=== PATIENT | male | born 1965 | race Caucasian/White ===

== ENCOUNTER 2019-05-20 10:36 | Outpatient (CLI) | payer BC ==
--- NOTE | 2019-05-20 11:09 | ULT ---
EXAM: Hepatic ultrasound with Doppler: Grayscale images according to protocol. Doppler evaluation of hepatic vessels with color Doppler and spectral analysis. INDICATIONS: Abnormal liver function tests. COMPARISON: None. FINDINGS: Liver is mildly echogenic which may represent fatty infiltration. No focal liver lesion. Gallbladder appears normal. Common bile duct is normal caliber. Spleen mildly enlarged measuring 14 cm. Visualized pancreas unremarkable Visualized hepatic veins, portal veins, hepatic artery, splenic vein all show normal flow direction. The left portal vein was not visualized. IMPRESSION: Liver is mildly echogenic. Hepatic Doppler study shows hepatopedal flow.
== END 2019-05-20 10:37 | disposition home or self-care (01) ==
LOC: ULT 10:36
PROVIDERS: ATTEND Physician Assistant Medical
DX: R94.5 Abnormal results of liver function studies (principal)
CPT/HCPCS: 76705